=== PATIENT | female | born 1990 | race American Indian/Alaskan Native ===

== ENCOUNTER 2017-07-18 08:12 | Emergency (ER) | payer OTHER ==
[2017-07-18 08:25] VITALS: BMI 26.6
[2017-07-18 08:27] VITALS: BP 97/53; TEMP 98; O2SAT 100
[2017-07-18 11:53] VITALS: PULSE 57; RESP 17
--- NOTE | 2017-07-18 12:00 | ED PDOC ---
Burn Injury/Smoke Inhalation Time Seen by Provider: 07/18/17 08:52 Chief Complaint (Nursing): Abnormal Skin Integrity Chief Complaint (Provider): Sun Burn History Per: Patient History/Exam Limitations: no limitations Injury Occurred (Timing): Days Ago: Type Of Burn (Context): Other (Sun burn) Additional Complaint(s): 26 years old female presents to the ED with complaints of sunburn on her face and chest associated with itching. Patient admits she came back from [place] last night where she spent everyday under the sun without applying any sunscreen. She denies taking any medications for relief. PMD: non provided Past Medical History Reviewed: Historical Data, Nursing Documentation, Vital Signs Vital Signs: Last Vital Signs Temp 98 F 07/18/17 08:26 Pulse 57 L 07/18/17 11:51 Resp 17 07/18/17 11:51 BP 97/53 L 07/18/17 08:26 Pulse Ox 100 07/18/17 11:51 - Medical History PMH: No Chronic Diseases - Surgical History Surgical History: No Surg Hx - Family History Family History: States: Unknown Family Hx - Social History Current smoker - smoking cessation education provided: No Alcohol: Social Drugs: Denies - Home Medications Home Medications: Ambulatory Orders Medication Instructions Recorded Amoxicillin/Clavulanate [Augmentin 1 tab PO BID #14 tab 08/30/16 875 MG-125 MG] DiphenhydrAMINE [Benadryl] 25 mg PO Q6 PRN #20 cap 07/18/17 - Allergies Allergies/Adverse Reactions: Allergies Allergy/AdvReac Type Severity Reaction Status Date / Time No Known Allergies Allergy Verified 08/30/16 12:17 Review of Systems ROS Statement: Except As Marked, All Systems Reviewed And Found Negative Skin: Positive for: Other ([place] of sunburn on chest and peeling skin of face) Physical Exam - Reviewed Nursing Documentation Reviewed: Yes Vital Signs Reviewed: Yes - Physical Exam Appears: Positive for: Non-toxic, No Acute Distress Head Exam: Positive for: ATRAUMATIC, NORMOCEPHALIC Skin: Positive for: Dry (Peeling skin of face. No swelling, tenderness or discharge. Eythema on chest with a different tone from face.) Eye Exam: Positive for: Normal appearance, EOMI ENT: Positive for: Normal ENT Inspection Neurologic/Psych: Positive for: Alert, Oriented - ECG O2 Sat by Pulse Oximetry: 100 (RA) Pulse Ox Interpretation: Normal Medical Decision Making Medical Decision Making: Initial impression: First degree sunburn. Patient is provided with topical care instructions and is instructed to apply over the counter sunburn gel and taking Benadryl. Scribe Attestation: Documented by Caryn Price, acting as a scribe for Ubaldo Munroe MD. Provider Scribe Attestation: All medical record entries made by the Scribe were at my direction and personally dictated by me. I have reviewed the chart and agree that the record accurately reflects my personal performance of the history, physical exam, medical decision making, and the department course for this patient. I have also personally directed, reviewed, and agree with the discharge instructions and disposition. Disposition - Clinical Impression Clinical Impression: Sunburn - Patient ED Disposition Is Patient to be Admitted: No Counseled Patient/Family Regarding: Studies Performed, Diagnosis, Need For Followup - Disposition Referrals: [facility] [Outside] Disposition: Routine/Home Disposition Time: 11:00 Condition: GOOD Additional Instructions: Apply soothing gel for sunburns. Take benadryl for itching. Apply ice to swollen areas. Prescriptions: DiphenhydrAMINE [Benadryl] 25 mg PO Q6 PRN #20 cap PRN Reason: Itching / Pruritus Instructions: Sunburn
== END 2017-07-18 11:51 | disposition home or self-care (01) ==
LOC: H.ER 08:12
DX: L55.0 Sunburn of first degree (principal)